=== PATIENT | female | born 1940 ===

== ENCOUNTER 2016-11-28 08:21 | Day surgery (SDC) | payer MEDICARE, BC, OTHER ==
[~2016-11-28 08:21] MED LIST: LIDOCAINE HCL 1% MPF SOL ONE; PROPOFOL 500 MG/50 ML EMU IV ONE
[2016-11-28 12:27] VITALS: BP 151/46; PULSE 54; RESP 24; TEMP 97; O2SAT 100
== END 2016-11-28 12:45 | disposition home or self-care (01) | DRG 951 ==
LOC: SURG 08:21
PROVIDERS: ATTEND Surgery
DX: Z86.010 Personal history of colon polyps (principal); E11.9 Type 2 diabetes mellitus without complications; D12.2 Benign neoplasm of ascending colon; K57.30 Diverticulosis of large intestine without perforation or abscess without bleeding; D12.5 Benign neoplasm of sigmoid colon
CPT/HCPCS: 82962; J2001; J2704

== ENCOUNTER 2017-12-02 07:12 | Day surgery (SDC) | payer MEDICARE, BC, OTHER ==
[2017-12-02] MEDS ORDERED: TRIAMCINOLONE ACETONIDE 40 MG/ML SUS ONE (08:02)
[2017-12-02] MEDS ORDERED: BUPIVACAINE HCL 0.25% MPF 30 ML SOL INFIL ONE (08:02)
[2017-12-02] MEDS ORDERED: LIDOCAINE HCL 2% MPF 10 ML SOL ONE (08:02)
[2017-12-02] MEDS: SODIUM CHLORIDE 0.9% FLUSH 10 ML SOL IV ONE ×2 (08:19→08:33)
[2017-12-02] MEDS: MIDAZOLAM 2 MG/2 ML SOL ONE ×2 (08:19→08:37)
[2017-12-02] MEDS: FENTANYL 100MCG/2ML SOL ONE ×2 (08:20→08:33)
[2017-12-02] MEDS ORDERED: LIDOCAINE HCL 1% MPF 30 SOL ONE (08:25)
[2017-12-02 09:28] VITALS: BP 154/69; PULSE 67; RESP 12; TEMP 97.9; O2SAT 96
== END 2017-12-02 09:50 | disposition home or self-care (01) | DRG 556 ==
LOC: SURG 07:12
PROVIDERS: ATTEND Nurse Anesthetist, Certified Registered
DX: M25.561 Pain in right knee (principal)
CPT/HCPCS: 76000; J2250; J3010; J2001; J3300